=== PATIENT | male | born 1955 | race Caucasian/White ===

== ENCOUNTER → 2016-05-26 | Outpatient (CLI) | payer BC ==
[~2016-05-26] MED LIST: ACET-2321 PO; ACET-2723 PO; ALLO300T2 PO; AMLO5TAB4 PO; CHLO500T3 PO; LEVO50TA11 PO; MINO100C2 PO; NAPR220T61 PO; QUIN324C10; RIVA20TA PO; SERT100T12 PO; SIMV20TA2 PO; SOTA120T PO; TAMS-1 PO
--- NOTE | 2016-05-26 16:43 | STEVAL ---
Eval Subjective and History Date/Time of Eval DATE: 05/26/16 TIME: 16:00 Medical Diagnosis R13.12 Oropharyngeal dysphagia Treatment Order: Assessment Orientations: x 3, Alert, Cooperative Primary Complaint: choking on thin liquids and some small crumbs Pain: No Prior History of This Problem: No Patient's Goals: Reduce coughing while eating Significant Past Medical Hx: Pt referred for MBSS for difficulty swallowing. Additional medical hx was not available. Pt brought list of medications but declined to provide other medical hx. Medical History Form Reviewed: No (not available) Residence Type: Private home/apartment Lives With: Spouse Prior Functional Status: Pt coughed on thin liquids and small crumbs. Current Functional Status: Increased risk of aspiration due to oral pharyngeal weakness and incoordination. Education Subject: Home Exercise Program, Diet, Swallowing Strategies Person(s) Educated: Patient Instruction Understanding Demo: Pt. verbalizes understand Education Comment BICYCLE ASSEMBLER reviewed results of modified barium swallow study with pt. Subjective and History Comment: Pt was alert and cooperative. We discussed outpatient speech therapy. Pt requested home ex instead. Modified Barium Swallow Lateral View Oral Phase : Lateral View Food Presentation: Thin Liquid via Spoon, Thin Liquid via Cup, Solid- Gordy Cracker, Syrup liquid via spoon, Pudding via spoon Number Presentations Lat View: 3 Labial Closure: No Impairment (WFL) Bolus Formation Scattered Loss: Moderate Impairment Mastication Rotary Chew: Mild Impairment A/P Lingual Propulsion Spills: No Impairment (WFL) Lingual Movement: Moderate Impairment (all consistencies) Residue Clearing: Mild Impairment (on thin and nectar consistencies) Premature Swallow: Moderate Impairment (on thin, nectar and solids) Other Oral Phase Observations: Pt demonstrated reduced coordination in oral stage of swallow with mild to moderate scattered residue on thin, nectar and solid consistencies. Mild to moderate oral residue was seen on thin, nectar and solid. Two to three dry swallows were needed to clear oral residue on thin, nectar and solids. Pudding moved through oral phase with no difficulty. Swallow strategies of chin tuck on thin liquid and effortful swallow made no significant improvement. Mastication was mildly reduced on cracker coated with barium. Swallow Response Delay: Minimal Impairment Base of Tongue: Moderate Impairment (premature swallow was seen on 3/3 thin liquid swallow by spoon & cup, 3/3 nectar and 1/3 solid swallow) Epiglottic Coverage: Moderate Impairment (on thin) Laryngeal Elevation: Minimal Impairment Vallecular Retention Clearing: Mild Impairment Pharyn.Wall Residue Clearing: No Impairment (WFL) Pyriform Sinus Clearing: Mild Impairment Compensatory Strategies: Secondary Swallow, Clear throat/swallow, Effortful swallow, Other (chin tuck) Other Pharyngeal Phase Observ.: Pt demonstrated significant base of tongue weakness with premature swallow noted on thin, nectar and solid consistencies. Laryngeal penetration was seen on thin and nectar. No david aspiration noted. Mild to moderate residue was seen in the valleculae and pyriform sinuses. Laryngeal elevation was inconsistent from functional to mildly reduced. A/P Test Performed in sitting A/P View Food Presentation: Thin Liquid via Spoon, Thin Liquid via Cup, Solid- Gordy Cracker, Syrup liquid via spoon, Pudding via spoon Number Presentations A/P View: 2 A/P View Residue Found In: Valleculae Right (mild), Valleculae Left (mild), Pyriform Sinus Right (minimal), Pyriform Sinus Left (minimal) A/P View Esophogeal Function: No Impairment (WFL) A/P View Other Observations: Bilateral residue noted in valleculae and pyriform sinuses. Secondary swallow, throat clearing and swallow and alternating solids and liquids were beneficial in reducing pharyngeal residue. Assessment/Plan of Care Speech Therapy Impressions: The modified barium swallow study was completed with C-arm due to positoning difficulties. Pt demonstrated reduced coordination in oral stage of swallow with mild to moderate scattered residue on thin, nectar and solid consistencies. Mildto moderate oral residue was seen on thin, nectar and solid. Two to three dry swallows were needed to clear oral residue on thin, nectar and solids. Pudding moved through oral phase with no difficulty. Swallow strategies of chin tuck on thin liquid and effortful swallow made no significant improvement. Mastication was mildly reduced on cracker coated with barium. Pt demonstrated significant base of tongue weakness with premature swallow noted on thin, nectar and solid consistencies. Laryngeal penetration was seen on thin and nectar. No david aspiration noted. Mild to moderate residue was seen in the valleculae and pyriform sinuses. Laryngeal elevation was inconsistent from functional to mildly reduced. evaluation only ST Treatment Plan: Evaluation Only ST Treatment Plan Frequency: N/A Treatment Plan Duration: N/A Plan of Care Comment Evaluation with recommendation for OP speech therapy. Pt declined OP therapy but request exercises. Exercises and diet recommendation for regular diet/ nectar thick liquids provided. Recommended Diet: regular diet avoiding nuts, crumbs with nectar thick liquids Date of Visit 05/26/16 Time Visit Began: 15:00 Time Visit Ended: 15:40 ST Assess/Plan of Care: ST Treatment Charge: MBSS Minutes of Individual Therapy: 40 GCODE Swallowing: G8996 - current Severity Modifier: CJ - 20-39% Swallowing: G8997 - goal Severity Modifier: CJ - 20-39% Swallowing: G8998 - d/c Severity Modifier: CJ - 20-39% NGA CAIN MS CCC-BICYCLE ASSEMBLER May 26, 2016 16:03
--- NOTE | 2016-05-26 17:32 | DI ---
Indication:ITS.REASON: R13.19 DYSPHAGIA Procedure:MODIFIED BAR. SWALLOW STUDY MODIFIED BAR. SWALLOW STUDY: Videofluoroscopy was performed in conjunction with a software support representative from speech pathology and a separate report and recommendations will be provided. Varying gradations of barium from thin to solid were administered. There was no aspiration noted with any of the consistencies. On the AP view the bolus showed no obvious preference for either side. Impression: No aspiration seen. Please see the speech pathology report for additional details and recommendations. Fluoroscopy dose: 3.36 rad (Cumulative air kerma) Srikanth Valdez RPA/OK performed this under my direct supervision. .
== END ==
LOC: IMA 14:38
PROVIDERS: ATTEND Family Medicine
DX: R13.19 Other dysphagia (principal)
CPT/HCPCS: 74230; 92611; G8996; G8997; G8998